=== PATIENT | male | born 1975 | race American Indian/Alaskan Native ===

== ENCOUNTER 2018-07-21 12:25 | Emergency (ER) | payer OTHER, MEDICAID ==
[2018-07-21 12:35] VITALS: BP 161/107
[2018-07-21] MEDS ORDERED: MOTRIN PO ONE (15:13)
--- NOTE | 2018-07-21 15:20 | Emergency Department Report ---
ED Upper Extremity Inj HPI - General Chief Complaint: Extremity Injury, Upper Stated Complaint: RT HAND PAIN Time Seen by Provider: 07/21/18 15:04 Source: patient Mode of arrival: Ambulatory Limitations: No Limitations - History of Present Illness Initial Comments: 42 yo male with a past medical history of hypertension presents to the hospital complaints of pain and swelling the proximal right thumb for the last 1 week. Patient denies recent injury but states that while in college he had a laceration to the MCP part of his thumb that require laceration repair he has chronic swelling to this area since. He cannot recall if he previously broke his thumb during this injury but he does not think so. He had similar episode of swelling and pain in May treated with splints anti-inflammatories. Symptoms improved slightly did not follow-up with orthopedics at that time. His pain is limiting movement of his thumb and radiates to the thenar eminences and along the radial side of the distal forearm. Pain is currently 8/10 intensity and worse with movement and palpation. Patient works as a electrocardiograph technician. He is right hand dominant. Patient is requesting a refill of his medication because he missed his follow-up appointment and he will run out of his blood pressure medication prior tomorrow. - Related Data Previous Rx's Medication Instructions Recorded Last Taken Type Hydralazine HCl 50 mg PO TID 30 Days tablet 07/21/18 Unknown Rx Ibuprofen [Motrin] 800 mg PO Q8HR PRN #30 tablet 07/21/18 Unknown Rx Labetalol HCl 200 mg PO TID 30 Days tablet 07/21/18 Unknown Rx amLODIPine [Norvasc] 5 mg PO DAILY #30 tablet 07/21/18 Unknown Rx traMADol [Ultram 50 MG tab] 50 mg PO Q6HR PRN #20 tablet 07/21/18 Unknown Rx Allergies Allergy/AdvReac Type Severity Reaction Status Date / Time lisinopril Allergy Unknown Verified 07/21/18 12:36 ED Review of Systems ROS: Stated complaint: RT HAND PAIN Other details as noted in HPI Comment: All other systems reviewed and negative ED Past Medical Hx - Past Medical History Previous Medical History?: No Hx Hypertension: Yes - Surgical History Additional Surgical History: Cabbage AVR - Social History Smoking Status: Current Some Day Smoker Substance Use Type: Alcohol - Medications Home Medications: Home Medications Medication Instructions Recorded Confirmed Last Taken Type Hydralazine HCl 50 mg PO TID 30 Days tablet 07/21/18 Unknown Rx Ibuprofen [Motrin] 800 mg PO Q8HR PRN #30 tablet 07/21/18 Unknown Rx Labetalol HCl 200 mg PO TID 30 Days tablet 07/21/18 Unknown Rx amLODIPine [Norvasc] 5 mg PO DAILY #30 tablet 07/21/18 Unknown Rx traMADol [Ultram 50 MG tab] 50 mg PO Q6HR PRN #20 tablet 07/21/18 Unknown Rx ED Physical Exam - General Limitations: No Limitations - Other Other exam information: General: No limitations, patient is alert in no acute distress Head exam: Atraumatic, normocephalic Eyes exam: Normal appearance, pupils equal reactive to light, extraocular movements intact ENT: Moist mucous membrane, normal oropharynx Neck exam: Normal inspection, full range of motion, no meningismus nontender Respiratory exam: Clear to auscultation bilateral, no wheezes, rales, crackles Cardiovascular: Normal rate and rhythm, normal heart sounds Abdomen: Soft, nondistended, and nontender, with normal bowel sounds, no rebound, or guarding Extremity: Right thumb with chronic swelling at MCP joint. Tenderness along the tendons of the thumb extending to distal forearm. Pain reproducible with movement. Limited thumb palmar abduction secondary to pain Back: Normal Inspection, full range of motion, no tenderness Neurologic: Alert, oriented x3, cranial nerves intact, no motor or sensory deficit Psychiatric: normal affect, normal mood Skin: Warm, dry, intact ED Course Vital Signs 07/21/18 12:32 Temperature 98.4 F Pulse Rate 90 Respiratory 16 Rate Blood Pressure 161/107 O2 Sat by Pulse 97 Oximetry ED Medical Decision Making - Radiology Data Radiology results: report reviewed RIGHT HAND, 3 views: History: Thumb pain. Normal bone mineralization. No evidence for fracture or erosive joint pathology. There appears to be mild medial subluxation at the first metacarpophalangeal joint. The etiology of this is unclear. Chronic deformity of the fifth metacarpal neck is identified. Small osteochondroma is identified at the base of the fourth digit. The soft tissues are unremarkable. IMPRESSION: No acute fracture identified. Question subluxation at the first metacarpophalangeal joint. - Medical Decision Making Possible subluxation of first MCP joints without recent injury and history of previous injury therefore likely chronic Patient has pain along the tendons Velcro Thumb spica splint placed Patient be treated with anti-inflammatories and pain medication Follow-up with Ortho advised Hypertension Chronic and asymptomatic Med refills will be prescribed. - Differential Diagnosis tendinitis, gout, fracture, arthritis Critical Care Time: No Critical care attestation.: If time is entered above; I have spent that time in minutes in the direct care of this critically ill patient, excluding procedure time. ED Disposition Clinical Impression: Pain of right thumb, Tendinitis, Subluxation of thumb Disposition: - TO HOME OR SELFCARE Is pt being admited?: No Does the pt Need Aspirin: No Condition: Stable Instructions: Tendinitis (ED) Additional Instructions: Follow up with the orthopedic doctor provided with the orthopedic doctor of your choice. Take the Medications as prescribed. Return if symptoms worsen as indicated by your discharge instructions Prescriptions: amLODIPine [Norvasc] 5 mg PO DAILY #30 tablet Hydralazine HCl 50 mg PO TID 30 Days tablet Ibuprofen [Motrin] 800 mg PO Q8HR PRN #30 tablet PRN Reason: Pain, Moderate (4-6) Labetalol HCl 200 mg PO TID 30 Days tablet traMADol [Ultram 50 MG tab] 50 mg PO Q6HR PRN #20 tablet PRN Reason: Pain , Severe (7-10) Referrals: PRIMARY CAREMD [Primary Care Provider] - 3-5 Days CONRADO FOLEY MD [Staff Physician] - 3-5 Days (orthopedics ) Time of Disposition: 16:14
--- NOTE | 2018-07-21 15:43 | XRay Report ---
RIGHT HAND, 3 views: History: Thumb pain. Normal bone mineralization. No evidence for fracture or erosive joint pathology. There appears to be mild medial subluxation at the first metacarpophalangeal joint. The etiology of this is unclear. Chronic deformity of the fifth metacarpal neck is identified. Small osteochondroma is identified at the base of the fourth digit. The soft tissues are unremarkable. IMPRESSION: No acute fracture identified. Question subluxation at the first metacarpophalangeal joint.
== END 2018-07-21 16:43 | disposition home or self-care (01) ==
LOC: ED 12:25
DX: S63.111A Subluxation of metacarpophalangeal joint of right thumb, initial encounter (principal); M77.9 Enthesopathy, unspecified; I10 Essential (primary) hypertension; Z72.0 Tobacco use; Z88.8 Allergy status to other drugs, medicaments and biological substances; Z79.899 Other long term (current) drug therapy; X58.XXXA Exposure to other specified factors, initial encounter; Y93.89 Activity, other specified; Y99.8 Other external cause status; Y92.89 Other specified places as the place of occurrence of the external cause